=== PATIENT | female | born 1990 | race American Indian/Alaskan Native ===

== ENCOUNTER 2016-04-15 00:22 | Emergency (ER) | payer SELFPAY ==
[2016-04-15 00:48] VITALS: BP 117/71
--- NOTE | 2016-04-15 04:25 | Emergency Department Report ---
- General Chief complaint: Skin/Abscess/Foreign Body Stated complaint: BUMP ON VAGINA Time Seen by Provider: 04/15/16 04:24 Source: patient Mode of arrival: Ambulatory Limitations: No Limitations - History of Present Illness Initial comments: 25-year-old female presents to the emergency room with complaint of a bump on her vagina for the last few days. The patient noticed a bump on her left side of her vagina 5 days ago progressively getting worse. Denies any injury. Patient shaved herself and since then she noticed a little bump progressively getting worse. Denies any vaginal discharge. Fever. Complains of pain to the area. MD complaint: abscess/boil -: Gradual, days(s) (five) Tetanus Up to Date: yes Location: genitals Severity: moderate Severity scale (0 -10): 3 Quality: aching, dull Consistency: constant Improves with: none Worsens with: palpation, movement Context: none Associated symptoms: denies other symptoms Treatments Prior to Arrival: none - Related Data Previous Rx's Medication Instructions Recorded Last Taken Type Amoxicillin [Amoxicillin TAB] 875 mg PO BID #20 tablet 12/20/14 Unknown Rx Prednisone [predniSONE 5 mg (6-Day 5 mg PO .TAPER #1 tab.ds.pk 12/20/14 Unknown Rx Pack, 21 Tabs)] Promethazine /Codeine 5 ml PO Q6H PRN #60 ml 12/20/14 Unknown Rx [Phenergan/Codeine 6.25-10 mg/5Ml] Ibuprofen [Motrin] 800 mg PO Q8HR PRN #10 tablet 12/18/15 Unknown Rx Sulfamethoxazole/Trimethoprim 1 each PO BID #10 tablet 12/18/15 Unknown Rx [Bactrim DS TAB] Cephalexin [Keflex] 500 mg PO Q8HR #21 cap 04/15/16 Unknown Rx Diclofenac Sodium 75 mg PO BID #14 tablet.dr 04/15/16 Unknown Rx Sulfamethoxazole/Trimethoprim 1 each PO BID #14 tablet 04/15/16 Unknown Rx [Bactrim DS TAB] traMADol [Ultram] 50 mg PO Q6HR PRN #14 tablet 04/15/16 Unknown Rx Allergies Allergy/AdvReac Type Severity Reaction Status Date / Time No Known Allergies Allergy Verified 12/19/14 23:19 Abscess Boil HPI - HPI Chief Complaint: Skin/Abscess/Foreign Body Stated Complaint: BUMP ON VAGINA Time Seen by Provider: 04/15/16 04:24 Home Medications: Previous Rx's Medication Instructions Recorded Last Taken Type Amoxicillin [Amoxicillin TAB] 875 mg PO BID #20 tablet 12/20/14 Unknown Rx Prednisone [predniSONE 5 mg (6-Day 5 mg PO .TAPER #1 tab.ds.pk 12/20/14 Unknown Rx Pack, 21 Tabs)] Promethazine /Codeine 5 ml PO Q6H PRN #60 ml 12/20/14 Unknown Rx [Phenergan/Codeine 6.25-10 mg/5Ml] Ibuprofen [Motrin] 800 mg PO Q8HR PRN #10 tablet 12/18/15 Unknown Rx Sulfamethoxazole/Trimethoprim 1 each PO BID #10 tablet 12/18/15 Unknown Rx [Bactrim DS TAB] Cephalexin [Keflex] 500 mg PO Q8HR #21 cap 04/15/16 Unknown Rx Diclofenac Sodium 75 mg PO BID #14 tablet. 04/15/16 Unknown Rx Sulfamethoxazole/Trimethoprim 1 each PO BID #14 tablet 04/15/16 Unknown Rx [Bactrim DS TAB] traMADol [Ultram] 50 mg PO Q6HR PRN #14 tablet 04/15/16 Unknown Rx Allergies/Adverse Reactions: Allergies Allergy/AdvReac Type Severity Reaction Status Date / Time No Known Allergies Allergy Verified 12/19/14 23:19 ED Review of Systems ROS: Stated complaint: BUMP ON VAGINA Other details as noted in HPI Comment: All other systems reviewed and negative Constitutional: denies: chills, fever Eyes: denies: eye pain, eye discharge, vision change ENT: denies: ear pain, throat pain Respiratory: denies: cough, shortness of breath, wheezing Cardiovascular: denies: chest pain, palpitations Endocrine: no symptoms reported Gastrointestinal: denies: abdominal pain, nausea, diarrhea Genitourinary: denies: urgency, dysuria, discharge Musculoskeletal: denies: back pain, joint swelling, arthralgia Skin: as per HPI, rash, lesions Neurological: denies: headache, weakness, paresthesias Psychiatric: denies: anxiety, depression Hematological/Lymphatic: denies: easy bleeding, easy bruising ED Past Medical Hx - Past Medical History Previous Medical History?: Yes Hx Headaches / Migraines: Yes (MIGRAINES) - Surgical History Past Surgical History?: No - Social History Smoking Status: Current Every Day Smoker Substance Use Type: Alcohol, Marijuana - Medications Home Medications: Home Medications Medication Instructions Recorded Confirmed Last Taken Type Amoxicillin [Amoxicillin TAB] 875 mg PO BID #20 tablet 12/20/14 Unknown Rx Prednisone [predniSONE 5 mg (6-Day 5 mg PO .TAPER #1 tab.ds.pk 12/20/14 Unknown Rx Pack, 21 Tabs)] Promethazine /Codeine 5 ml PO Q6H PRN #60 ml 12/20/14 Unknown Rx [Phenergan/Codeine 6.25-10 mg/5Ml] Ibuprofen [Motrin] 800 mg PO Q8HR PRN #10 tablet 12/18/15 Unknown Rx Sulfamethoxazole/Trimethoprim 1 each PO BID #10 tablet 12/18/15 Unknown Rx [Bactrim DS TAB] Cephalexin [Keflex] 500 mg PO Q8HR #21 cap 04/15/16 Unknown Rx Diclofenac Sodium 75 mg PO BID #14 tablet. 04/15/16 Unknown Rx Sulfamethoxazole/Trimethoprim 1 each PO BID #14 tablet 04/15/16 Unknown Rx [Bactrim DS TAB] traMADol [Ultram] 50 mg PO Q6HR PRN #14 tablet 04/15/16 Unknown Rx ED Physical Exam - General Limitations: No Limitations General appearance: alert, in no apparent distress - Head Head exam: Present: atraumatic, normocephalic - Eye Eye exam: Present: normal appearance - ENT ENT exam: Present: mucous membranes moist - Neck Neck exam: Present: normal inspection - Respiratory Respiratory exam: Present: normal lung sounds bilaterally. Absent: respiratory distress - Cardiovascular Cardiovascular Exam: Present: regular rate, normal rhythm. Absent: systolic murmur, diastolic murmur, rubs, gallop - GI/Abdominal GI/Abdominal exam: Present: soft, normal bowel sounds - External exam: Present: erythema (left labia. moderate tenderness. female RN and family present), swelling - Extremities Exam Extremities exam: Present: normal inspection - Back Exam Back exam: Present: normal inspection - Neurological Exam Neurological exam: Present: alert, oriented X3 - Psychiatric Psychiatric exam: Present: normal affect, normal mood - Skin Skin exam: Present: warm, dry, intact, normal color. Absent: rash ED Course Vital Signs 04/15/16 04/15/16 00:47 01:52 Temperature 99.4 F 99.4 F Pulse Rate 100 H 100 H Respiratory 20 20 Rate Blood Pressure 117/71 Blood Pressure 117/71 [Right] O2 Sat by Pulse 100 100 Oximetry - Reevaluation(s) Reevaluation #1: Incision and drainage of Bartholin's abscess in the left labia was offered and the patient. Patient wants to hold off on the I & D, wants antibiotics and pain medicine to try. 04/15/16 05:00 Critical care attestation.: If time is entered above; I have spent that time in minutes in the direct care of this critically ill patient, excluding procedure time. ED Disposition Clinical Impression: Bartholin's gland abscess Disposition: DISCHARGED TO HOME OR SELFCARE Is pt being admited?: No Does the pt Need Aspirin: No Condition: Good Instructions: Bartholin Cyst (ED), Abscess (ED) Prescriptions: Cephalexin [Keflex] 500 mg PO Q8HR #21 cap Diclofenac Sodium 75 mg PO BID #14 tablet. Sulfamethoxazole/Trimethoprim [Bactrim DS TAB] 1 each PO BID #14 tablet traMADol [Ultram] 50 mg PO Q6HR PRN #14 tablet PRN Reason: Pain Referrals: [facility] [Provider Group] - 3-5 Days Forms: Work/School Release Form(ED)
[2016-04-15] MEDS ORDERED: NORCO 10/325 PO ONE (04:38)
[2016-04-15] MEDS ORDERED: BACTRIM DS PO ONE (04:38)
[2016-04-15] MEDS ORDERED: KEFLEX PO ONE (04:39)
== END 2016-04-15 05:30 | disposition home or self-care (01) ==
LOC: ED 00:22
DX: N75.1 Abscess of Bartholin's gland (principal); G43.909 Migraine, unspecified, not intractable, without status migrainosus; F17.200 Nicotine dependence, unspecified, uncomplicated; F12.10 Cannabis abuse, uncomplicated
CPT/HCPCS: 99282

== ENCOUNTER 2016-05-17 11:43 | Emergency (ER) | payer SELFPAY ==
[2016-05-17 13:42] LABS: Basophils % (Auto) 0.2 % (0.0-1.8); Eosinophils % (Auto) 0.1 % (0.0-4.3); Hematocrit 41.2 % (30.3-42.9); Mean Corpuscular HGB Conc 32 % (30-34); Mean Corpuscular Hemoglobin 27 pg (28-32); Mean Corpuscular Volume 84 fl (79-97); Platelet Count 256 K/mm3 (140-440); Red Cell Distribution Width 14.3 % (13.2-15.2); White Blood Count 6.1 K/mm3 (4.5-11.0)
[2016-05-17 13:43] LABS: Bilirubin,Urine NEG (Negative); Blood,Urine LG (Negative); Ketones,Urine 80 mg/dL (Negative); Leukocyte Esterase,Urine TR (Negative); Mucus,Urine 1+ /HPF; Nitrite,Urine NEG (Negative); Urobilinogen,Urine < 2.0 mg/dL (<2.0)
[2016-05-17 13:49] LABS: Anion Gap 17 mmol/L; BUN/Creatinine Ratio 18.33; Blood Urea Nitrogen 11 mg/dL (7-17); Calcium 9.2 mg/dL (8.4-10.2); Carbon Dioxide 24 mmol/L (22-30); Chloride 99.7 mmol/L (98-107); Glucose 109 mg/dL (65-100); Potassium 3.9 mmol/L (3.6-5.0); Sodium 137 mmol/L (137-145)
--- NOTE | 2016-05-17 16:07 | Ultrasound Report ---
Pelvic ultrasound: Vaginal bleeding, pain and IUD position. Endovaginal and transabdominal imaging demonstrates an anteverted uterus measuring 3.5 x 4.7 x 7.2 cm. The myometrium is homogeneous. The endometrial thickness is 4.9 mm. There is an IUD in good position with the tip approximately 15 mm from the margin of the superior fundus. The left ovary is not identified by either approach. The right ovary measures 3.4 cm and contains an 18 mm hypoechogenic mass with sharp margins and may represent a cyst. No free fluid identified. Impressions: 1. Well-positioned IUD. 2. Nonvisualized left ovary.
[2016-05-17 17:28] VITALS: BP 140/81
[2016-05-17] MEDS ORDERED: NACL 0.9% 1000 ML 1,000 ML IV ONE (19:26)
[2016-05-17] MEDS ORDERED: TORADOL IV ONE (19:26)
[2016-05-17] MEDS ORDERED: ZOFRAN IV ONE ×2 (19:26→20:42)
[2016-05-17] MEDS ORDERED: BENTYL IM ONE (19:26)
--- NOTE | 2016-05-17 19:52 | Emergency Department Report ---
ED General Adult HPI - General Chief complaint: Nausea/Vomiting/Diarrhea Stated complaint: N/V/D Time Seen by Provider: 05/17/16 19:11 Source: patient Mode of arrival: Ambulatory Limitations: No Limitations - History of Present Illness Initial comments: PT c/o having menstrual problems since she was a child. PT states that 4 years ago she had to stop her OCPs because she was dx with migraines with aura. PT states at that time she had Mirena IUD placed. PT states it helped for a few years but 1 year ago, she started getting her cycle again. PT states every month her cycle is 7 days long and she has associated N/V/D. PT states she has not followed up with [facility]. PT states she just goes to the ED when her symptoms get back. PT states her cycle started yesterday and she woke up this morning at 0100 vomiting. MD Complaint: dysmenorrhea Onset/Timin -: Gradual, days(s) Location: pelvis Severity scale (0 -10): 10 Quality: stabbing, other (cramping ) Consistency: constant Improves with: none Associated Symptoms: loss of appetite, malaise, nausea/vomiting. denies: fever/ chills - Related Data Previous Rx's Medication Instructions Recorded Last Taken Type Meloxicam [Mobic] 15 mg PO DAILY PRN #7 tablet 05/17/16 Unknown Rx Ondansetron [Zofran Odt] 4 mg PO Q8HR PRN #10 tab.rapdis 05/17/16 Unknown Rx Allergies Allergy/AdvReac Type Severity Reaction Status Date / Time No Known Allergies Allergy Verified 12/19/14 23:19 ED Review of Systems ROS: Stated complaint: N/V/D Other details as noted in HPI Comment: All other systems reviewed and negative Constitutional: malaise. denies: fever Gastrointestinal: abdominal pain, nausea, vomiting Genitourinary: denies: dysuria, discharge, abnormal menses Musculoskeletal: back pain ED Past Medical Hx - Past Medical History Previous Medical History?: Yes Hx Headaches / Migraines: Yes (MIGRAINES) Additional medical history: IUD - Surgical History Past Surgical History?: Yes Additional Surgical History: IUD - Social History Smoking Status: Current Some Day Smoker Substance Use Type: Alcohol, Marijuana, Non Opiate Pain - Medications Home Medications: Home Medications Medication Instructions Recorded Confirmed Last Taken Type Meloxicam [Mobic] 15 mg PO DAILY PRN #7 tablet 05/17/16 Unknown Rx Ondansetron [Zofran Odt] 4 mg PO Q8HR PRN #10 tab.rapdis 05/17/16 Unknown Rx ED Physical Exam - General Limitations: No Limitations General appearance: alert, in no apparent distress - Head Head exam: Present: atraumatic, normocephalic, normal inspection - Eye Eye exam: Present: normal appearance, PERRL. Absent: conjunctival injection - ENT ENT exam: Present: normal exam, mucous membranes moist - Neck Neck exam: Present: normal inspection, full ROM. Absent: tenderness - Respiratory Respiratory exam: Present: normal lung sounds bilaterally. Absent: respiratory distress, wheezes, chest wall tenderness - Cardiovascular Cardiovascular Exam: Present: regular rate, normal rhythm, normal heart sounds - GI/Abdominal GI/Abdominal exam: Present: soft, hyperactive bowel sounds (x 4 ). Absent: tenderness, normal bowel sounds - Extremities Exam Extremities exam: Present: normal inspection, full ROM - Back Exam Back exam: Present: normal inspection, full ROM. Absent: tenderness, CVA tenderness (R), CVA tenderness (L), muscle spasm, paraspinal tenderness, vertebral tenderness - Neurological Exam Neurological exam: Present: alert, oriented X3 - Psychiatric Psychiatric exam: Present: normal affect, normal mood - Skin Skin exam: Present: warm, dry, intact, normal color ED Course Vital Signs 05/17/16 05/17/16 12:45 17:20 Temperature 98.5 F 99.0 F Pulse Rate 78 86 Respiratory 20 20 Rate Blood Pressure 127/79 140/81 O2 Sat by Pulse 100 100 Oximetry - Reevaluation(s) Reevaluation #1: 05/17/16 19:55 PT aware of US and lab results. PT aware of plan of care. PT aware she will need to follow up with [facility] Reevaluation #2: 05/17/16 20:42 PT states the pain has decreased. PT states she is pain free now. PT states she is still nauseated. pt aware of plan of care. - Pulse Oximetry Interpretation Digit-Finger Initial Pulse Oximetry Readin Actions Taken: none ED Medical Decision Making - Lab Data Result diagrams: 05/17/16 13:21 05/17/16 13:21 Lab Results 05/17/16 05/17/16 05/17/16 Range/Units 13:05 13:21 13:21 WBC 6.1 (4.5-11.0) K/mm3 RBC 4.90 (3.65-5.03) M/mm3 Hgb 13.0 (10.1-14.3) gm/dl Hct 41.2 (30.3-42.9) % MCV 84 (79-97) fl MCH 27 L (28-32) pg MCHC 32 (30-34) % RDW 14.3 (13.2-15.2) % Plt Count 256 (140-440) K/mm3 Lymph % (Auto) 10.9 L (13.4-35.0) % Christian % (Auto) 9.7 H (0.0-7.3) % Eos % (Auto) 0.1 (0.0-4.3) % Baso % (Auto) 0.2 (0.0-1.8) % Lymph # 0.7 L (1.2-5.4) K/mm3 Christian # 0.6 (0.0-0.8) K/mm3 Eos # 0.0 (0.0-0.4) K/mm3 Baso # 0.0 (0.0-0.1) K/mm3 Seg Neutrophils % 79.1 H (40.0-70.0) % Seg Neutrophils # 4.8 (1.8-7.7) K/mm3 Sodium 137 (137-145) mmol/L Potassium 3.9 (3.6-5.0) mmol/L Chloride 99.7 (98-107) mmol/L Carbon Dioxide 24 (22-30) mmol/L Anion Gap 17 mmol/L BUN 11 (7-17) mg/dL Creatinine 0.6 L (0.7-1.2) mg/dL Estimated GFR > 60 ml/min BUN/Creatinine Ratio 18.33 % Glucose 109 H (65-100) mg/dL Calcium 9.2 (8.4-10.2) mg/dL Urine Color Yellow (Yellow) Urine Turbidity Clear (Clear) Urine pH 5.0 (5.0-7.0) Ur Specific [place] 1.031 H (1.003-1.030) Urine Protein 100 mg/dl (Negative) mg/dL Urine Glucose (UA) Neg (Negative) mg/dL Urine Ketones 80 (Negative) mg/dL Urine Blood Lg (Negative) Urine Nitrite Neg (Negative) Ur Reducing Substances Not Reportable Urine Bilirubin Neg (Negative) Urine Ictotest Not Reportable Urine Urobilinogen < 2.0 (<2.0) mg/dL Ur Leukocyte Esterase Tr (Negative) Urine WBC (Auto) 3.0 (0.0-6.0) /HPF Urine RBC (Auto) 154.0 (0.0-6.0) /HPF U Epithel Cells (Auto) 4.0 (0-13.0) /HPF Urine Mucus 1+ /HPF Urine HCG, Qual Negative (Negative) Urine contaminated - Radiology Data Radiology results: report reviewed pelvic US - Well positioned IUD - Differential Diagnosis , migrated iud, uti, dysmenorrhea Critical care attestation.: If time is entered above; I have spent that time in minutes in the direct care of this critically ill patient, excluding procedure time. ED Disposition Clinical Impression: Dysmenorrhea Nausea & vomiting Qualifiers: Vomiting type: unspecified Vomiting Intractability: non-intractable Qualified Code(s): R11.2 - Nausea with vomiting, unspecified Disposition: DISCHARGED TO HOME OR SELFCARE Is pt being admited?: No Does the pt Need Aspirin: No Condition: Stable Instructions: Endometriosis (ED), Dysmenorrhea (ED) Additional Instructions: Recheck BP on follow up Prescriptions: Meloxicam [Mobic] 15 mg PO DAILY PRN #7 tablet PRN Reason: Pain Ondansetron [Zofran Odt] 4 mg PO Q8HR PRN #10 tab.rapdis PRN Reason: Nausea Referrals: [facility] [Provider Group] - 3-5 Days [facility] [Outside] - 3-5 Days [facility] [Outside] - 3-5 Days [facility] [Primary Care Provider] - 3-5 Days Forms: Work/School Release Form(ED)
== END 2016-05-17 22:28 | disposition home or self-care (01) ==
LOC: ED 11:43
DX: N94.6 Dysmenorrhea, unspecified (principal); R11.2 Nausea with vomiting, unspecified; G43.909 Migraine, unspecified, not intractable, without status migrainosus; F17.200 Nicotine dependence, unspecified, uncomplicated; F12.10 Cannabis abuse, uncomplicated
CPT/HCPCS: 36415; 76830; 76856; 80048; 81001; 81025; 82962; 85025; 96361; 96372; 96374; 96375; 99284; J0500; J1885; J2405; J7030

== ENCOUNTER 2017-01-07 13:00 | Emergency (ER) | payer OTHER ==
[2017-01-07 14:23] LABS: Basophils % (Auto) 0.4 % (0.0-1.8); Eosinophils % (Auto) 1.1 % (0.0-4.3); Hematocrit 37.8 % (30.3-42.9); Hemoglobin 12.4 gm/dl (10.1-14.3); Mean Corpuscular HGB Conc 33 % (30-34); Mean Corpuscular Hemoglobin 27 pg (28-32); Mean Corpuscular Volume 84 fl (79-97); Platelet Count 257 K/mm3 (140-440); Red Blood Count 4.52 M/mm3 (3.65-5.03); Red Cell Distribution Width 13.8 % (13.2-15.2); White Blood Count 9.7 K/mm3 (4.5-11.0)
[2017-01-07 14:44] LABS: Alanine Aminotransferase 10 units/L (7-56); Albumin 3.6 g/dL (3.9-5); Albumin/Globulin Ratio 1.2 %; Alkaline Phosphatase 40 units/L (35-129); Anion Gap 16 mmol/L; BUN/Creatinine Ratio 15; Bilirubin,Total < 0.20 mg/dL (0.1-1.2); Blood Urea Nitrogen 9 mg/dL (7-17); Calcium 8.8 mg/dL (8.4-10.2); Carbon Dioxide 24 mmol/L (22-30); Chloride 102.2 mmol/L (98-107); Glucose 111 mg/dL (65-100); Lipase 40 units/L (13-60); Potassium 3.6 mmol/L (3.6-5.0); Sodium 139 mmol/L (137-145); Total Protein 6.6 g/dL (6.3-8.2)
[2017-01-07 14:49] LABS: Bacteria,Urine 1+ /HPF (Negative); Bilirubin,Urine NEG (Negative); Blood,Urine NEG (Negative); Ketones,Urine NEG (Negative); Leukocyte Esterase,Urine TR (Negative); Mucus,Urine 2+ /HPF; Nitrite,Urine NEG (Negative); Urobilinogen,Urine < 2.0 mg/dL (<2.0)
[2017-01-07 17:00] VITALS: BP 104/62
[2017-01-07] MEDS ORDERED: MORPHINE IV ONE (17:05)
[2017-01-07] MEDS ORDERED: ZOFRAN IV ONE (17:05)
--- NOTE | 2017-01-07 17:12 | Emergency Department Report ---
HPI - General Chief Complaint: Abdominal Pain Time Seen by Provider: 01/07/17 16:47 - HPI HPI: This is a 26-year-old white female presents to the emergency department with complaint of some upper abdominal pain, nausea and vomiting has been going on since last night. She has a past medical history of migraines. She has not taken anything for her symptoms. Presentation. No recent travel or sick contacts at home. She denies any dysuria, vaginal bleeding or discharge, fever , back pain, diarrhea. She was driven in by her girlfriend. ED Past Medical Hx - Past Medical History Hx Headaches / Migraines: Yes (MIGRAINES) Additional medical history: IUD - Surgical History Additional Surgical History: IUD - Social History Smoking Status: Current Every Day Smoker Substance Use Type: None - Medications Home Medications: Home Medications Medication Instructions Recorded Confirmed Last Taken Type Meloxicam [Mobic] 15 mg PO DAILY PRN #7 tablet 05/17/16 Unknown Rx HYDROcodone/APAP 5-325 [[place] 1 each PO Q6HR PRN #10 tablet 01/07/17 Unknown Rx 5/325] Ondansetron [Zofran ODT TAB] 4 mg PO Q8HR PRN #10 tab.rapdis 01/07/17 Unknown Rx ED Review of Systems ROS: Stated complaint: ABDOMINAL PAIN Other details as noted in HPI Comment: All other systems reviewed and negative Constitutional: denies: chills, fever Eyes: denies: eye pain, eye discharge, vision change ENT: denies: ear pain, throat pain Respiratory: denies: cough, shortness of breath, wheezing Cardiovascular: denies: chest pain, palpitations Gastrointestinal: abdominal pain, nausea, vomiting Genitourinary: denies: urgency, dysuria, discharge Musculoskeletal: denies: back pain, joint swelling, arthralgia Skin: denies: rash, lesions Neurological: denies: headache, weakness, paresthesias Physical Exam - Physical Exam Vital Signs: Vital Signs 01/07/17 01/07/17 01/07/17 13:06 16:51 16:53 Temperature 98.5 F 97.9 F Pulse Rate 79 98 H Respiratory 24 20 22 Rate Blood Pressure 132/78 Blood Pressure 104/62 [Right] O2 Sat by Pulse 98 98 98 Oximetry Physical Exam: GENERAL: The patient is well-developed well-nourished. HENT: Normocephalic. Atraumatic. Patient has moist mucous membranes. EYES: Extraocular motions are intact. Pupils equal reactive to light bilaterally. NECK: Supple. Trachea is midline. CHEST/LUNGS: Clear to auscultation. There is no respiratory distress noted. HEART/CARDIOVASCULAR: Regular. There is no tachycardia. There is no gallop rub or murmur. ABDOMEN: Abdomen is soft. Upper abdominal tenderness to palpation, worst in the right upper quadrant. No guarding or rebound tenderness. Patient has normal bowel sounds. There is no abdominal distention. SKIN: Skin is warm and dry. NEURO: The patient is awake, alert, and oriented. The patient is cooperative. The patient has no focal neurologic deficits. The patient has normal speech. MUSCULOSKELETAL: There is no tenderness or deformity. There is no limitation range of motion. There is no evidence of acute injury. ED Course Vital Signs 01/07/17 01/07/17 01/07/17 13:06 16:51 16:53 Temperature 98.5 F 97.9 F Pulse Rate 79 98 H Respiratory 24 20 22 Rate Blood Pressure 132/78 Blood Pressure 104/62 [Right] O2 Sat by Pulse 98 98 98 Oximetry ED Medical Decision Making - Lab Data Result diagrams: 01/07/17 14:04 01/07/17 14:04 - Radiology Data Radiology results: report reviewed PROCEDURE: US ABDOMEN LIMITED TECHNIQUE: Real-time sonography in multiple planes of the gallbladder fossa and CBD with imaging of the adjacent liver, pancreas, and right kidney was performed with image documentation. CPT 88707 HISTORY: Upper abd pain COMPARISON: No prior studies are available for comparison. FINDINGS: Liver: Normal size and echotexture with no evidence of cystic or solid mass lesion. Gallbladder: There is a 1.8 centimeter gallstone within the gallbladder lumen with posterior shadowing. No gallbladder wall thickening. Intrahepatic bile ducts: Normal . Extrahepatic bile ducts: 4 millimeter caliber common bile duct. Pancreas: Not fully visualized. Right kidney: Normal echotexture. No focal renal mass, calculus, or hydronephrosis. Other: No free fluid. IMPRESSION: Cholelithiasis. No sonographic evidence of acute cholecystitis Transcribed By: [facility] Dictated By: CLEMENTINA DONALD M.D. Electronically Authenticated By: CLEMENTINA DONALD M.D. Signed Date/Time: 01/07/17 1429 - Medical Decision Making Patient has had upper abdominal pain, nausea and vomiting since last night. Given pain medication and Zofran. Suspicion for cholelithiasis so ultrasound was done which does confirm a 2 cm gallstone but no signs of cholecystitis. Labs are unremarkable. Vital signs stable including being afebrile. She will be discharged home with pain medication, nausea medication and a referral for general surgery. We discussed staying away from foods that are greasy, fried or spicy, stay away from alcohol, and we discussed when to return to the emergency department. - Differential Diagnosis cholelithiasis, cholecystitis, pancreatitis, gastritis Critical Care Time: No Critical care attestation.: If time is entered above; I have spent that time in minutes in the direct care of this critically ill patient, excluding procedure time. ED Disposition Clinical Impression: Upper abdominal pain Cholelithiasis Qualifiers: Cholelithiasis location: gallbladder Cholecystitis presence: without cholecystitis Biliary obstruction: without biliary obstruction Qualified Code(s) : K80.20 - Calculus of gallbladder without cholecystitis without obstruction Disposition: - TO HOME OR SELFCARE Is pt being admited?: No Condition: Stable Instructions: Biliary Colic (ED), Abdominal Pain (ED) Additional Instructions: Please follow-up with your primary care physician. I have given you a referral for a local general surgeon, Dr. Barrientos, occasionally would like to follow up regarding your gallstones. Return to the emergency Department with any worsening of your symptoms, development of fever, vomiting and the inability to stay hydrated, and any acute distress. You have been prescribed a medication that is sedating and therefore should not be taken prior to driving, working, and responsible for children and in no way should be mixed with alcohol of any quantity. Prescriptions: HYDROcodone/APAP 5-325 [[place] 5/325] 1 each PO Q6HR PRN #10 tablet PRN Reason: Pain Ondansetron [Zofran ODT TAB] 4 mg PO Q8HR PRN #10 tab.rapdis PRN Reason: Nausea Referrals: PRIMARY CARE, [Primary Care Provider] - 3-5 Days ABHILASH BARRIENTOS MD [Staff Physician] - 3-5 Days Forms: Work/School Release Form(ED) Time of Disposition: 18:40
--- NOTE | 2017-01-07 18:32 | Ultrasound Report ---
FINAL REPORT PROCEDURE: US ABDOMEN LIMITED TECHNIQUE: Real-time sonography in multiple planes of the gallbladder fossa and CBD with imaging of the adjacent liver, pancreas, and right kidney was performed with image documentation. CPT 60744 HISTORY: Upper abd pain COMPARISON: No prior studies are available for comparison. FINDINGS: Liver: Normal size and echotexture with no evidence of cystic or solid mass lesion. Gallbladder: There is a 1.8 centimeter gallstone within the gallbladder lumen with posterior shadowing. No gallbladder wall thickening. Intrahepatic bile ducts: Normal . Extrahepatic bile ducts: 4 millimeter caliber common bile duct. Pancreas: Not fully visualized. Right kidney: Normal echotexture. No focal renal mass, calculus, or hydronephrosis. Other: No free fluid. IMPRESSION: Cholelithiasis. No sonographic evidence of acute cholecystitis
== END 2017-01-07 19:04 | disposition home or self-care (01) ==
LOC: ED 13:00
DX: K80.20 Calculus of gallbladder without cholecystitis without obstruction (principal); G43.909 Migraine, unspecified, not intractable, without status migrainosus; F17.200 Nicotine dependence, unspecified, uncomplicated
CPT/HCPCS: 36415; 76705; 80053; 81001; 81025; 83690; 84703; 85025; 96374; 96375; 99284; J2270; J2405

== ENCOUNTER 2017-02-23 04:17 | Emergency (ER) | payer OTHER ==
[2017-02-23 07:27] LABS: Hematocrit 38.5 % (30.3-42.9); Hemoglobin 12.6 gm/dl (10.1-14.3); Mean Corpuscular HGB Conc 33 % (30-34); Mean Corpuscular Hemoglobin 27 pg (28-32); Mean Corpuscular Volume 82 fl (79-97); Platelet Count 241 K/mm3 (140-440); Red Blood Count 4.69 M/mm3 (3.65-5.03); Red Cell Distribution Width 13.5 % (13.2-15.2)
[2017-02-23 07:29] LABS: Alanine Aminotransferase 11 units/L (7-56); BUN/Creatinine Ratio 13; Blood Urea Nitrogen 9 mg/dL (7-17); Calcium 8.9 mg/dL (8.4-10.2); Hemolysis Index 10
[2017-02-23 07:55] LABS: Bacteria,Urine 2+ /HPF (Negative); Bilirubin,Urine NEG (Negative); Blood,Urine MOD (Negative); Color,Urine Amber (Yellow); Mucus,Urine 3+ /HPF; Nitrite,Urine POS (Negative)
[2017-02-23 08:36] LABS: Total Cells Counted 100
[2017-02-23 08:37] LABS: Band Neutrophils # (Manual) 0.1 K/mm3; Basophils % (Manual) 0 % (0.0-1.8); Platelet Estimate Consistent w Auto; RBC Morphology Normal
--- NOTE | 2017-02-23 11:58 | Emergency Department Report ---
ED General Adult HPI - General Chief complaint: Abdominal Pain Stated complaint: ABD PAIN, FLU SX Time Seen by Provider: 02/23/17 11:51 Source: patient Mode of arrival: Ambulatory Limitations: No Limitations - History of Present Illness Initial comments: Patient is a 26-year-old [place] female who is presenting with several days of nausea vomiting diarrhea and cough. Patient states these symptoms have been present for approximately 5 days. Patient states she has generalized abdominal discomfort that is crampy 5 out of 10 in severity with nausea vomiting and diarrhea. Patient's last episode of nausea vomiting diarrhea yesterday. Patient's had a productive cough with yellow sputum for the past several days as well as nasal congestion. Patient denies any significant body aches and fevers chills vaginal discharge and vaginal bleeding or dysuria at this time. - Related Data Previous Rx's Medication Instructions Recorded Last Taken Type Meloxicam [Mobic] 15 mg PO DAILY PRN #7 tablet 05/17/16 Unknown Rx HYDROcodone/APAP 5-325 [[place] 1 each PO Q6HR PRN #10 tablet 01/07/17 Unknown Rx 5/325] Ondansetron [Zofran ODT TAB] 4 mg PO Q8HR PRN #10 tab.rapdis 01/07/17 Unknown Rx ALBUTEROL Inhaler [Proair] 2 puff IH QID PRN #1 inhalation 02/23/17 Unknown Rx Azithromycin [Zithromax] 250 mg PO DAILY #6 tablet 02/23/17 Unknown Rx Benzonatate [Tessalon Perle] 100 mg PO TID #12 capsule 02/23/17 Unknown Rx HYDROcodone/APAP 5-325 [[place] 1 each PO Q4HR PRN #12 tablet 02/23/17 Unknown Rx 5/325] Nitrofurantoin Monohyd/M-Cryst 100 mg PO BID #14 capsule 02/23/17 Unknown Rx [Macrobid 100 mg Capsule] predniSONE [Deltasone] 20 mg PO QDAY #5 tab 02/23/17 Unknown Rx Allergies Allergy/AdvReac Type Severity Reaction Status Date / Time No Known Allergies Allergy Verified 01/07/17 13:05 ED Review of Systems ROS: Stated complaint: ABD PAIN, FLU SX Other details as noted in HPI Comment: All other systems reviewed and negative ED Past Medical Hx - Past Medical History Previous Medical History?: Yes Hx Headaches / Migraines: Yes (MIGRAINES) Additional medical history: IUD; h/o gallstones - Surgical History Past Surgical History?: Yes Additional Surgical History: IUD - Social History Smoking Status: Current Some Day Smoker Substance Use Type: Alcohol - Medications Home Medications: Home Medications Medication Instructions Recorded Confirmed Last Taken Type Meloxicam [Mobic] 15 mg PO DAILY PRN #7 tablet 05/17/16 Unknown Rx HYDROcodone/APAP 5-325 [[place] 1 each PO Q6HR PRN #10 tablet 01/07/17 Unknown Rx 5/325] Ondansetron [Zofran ODT TAB] 4 mg PO Q8HR PRN #10 tab.rapdis 01/07/17 Unknown Rx ALBUTEROL Inhaler [Proair] 2 puff IH QID PRN #1 inhalation 02/23/17 Unknown Rx Azithromycin [Zithromax] 250 mg PO DAILY #6 tablet 02/23/17 Unknown Rx Benzonatate [Tessalon Perle] 100 mg PO TID #12 capsule 02/23/17 Unknown Rx HYDROcodone/APAP 5-325 [[place] 1 each PO Q4HR PRN #12 tablet 02/23/17 Unknown Rx 5/325] Nitrofurantoin Monohyd/M-Cryst 100 mg PO BID #14 capsule 02/23/17 Unknown Rx [Macrobid 100 mg Capsule] predniSONE [Deltasone] 20 mg PO QDAY #5 tab 02/23/17 Unknown Rx ED Physical Exam - General Limitations: No Limitations General appearance: alert, in no apparent distress - Head Head exam: Present: atraumatic, normocephalic - Eye Eye exam: Present: normal appearance - ENT ENT exam: Present: mucous membranes moist. Absent: normal orophraynx (some mild generalized erythema to the posterior pharynx there is no exudate) - Neck Neck exam: Present: normal inspection, lymphadenopathy (shoddy right sided anterior cervical lymph nodes) - Respiratory Respiratory exam: Present: normal lung sounds bilaterally. Absent: respiratory distress, wheezes, rales, rhonchi - Cardiovascular Cardiovascular Exam: Present: regular rate, normal rhythm. Absent: systolic murmur, diastolic murmur, rubs, gallop - GI/Abdominal GI/Abdominal exam: Present: soft, normal bowel sounds. Absent: distended, tenderness, guarding, rebound - Extremities Exam Extremities exam: Present: normal inspection - Back Exam Back exam: Present: normal inspection - Neurological Exam Neurological exam: Present: alert, oriented X3 - Psychiatric Psychiatric exam: Present: normal affect, normal mood - Skin Skin exam: Present: warm, dry, intact, normal color. Absent: rash ED Course Vital Signs 02/23/17 02/23/17 02/23/17 04:19 04:23 05:30 Temperature 98.3 F 98.3 F Pulse Rate 84 82 Respiratory 16 16 Rate Blood Pressure 134/79 134/79 O2 Sat by Pulse 98 96 Oximetry ED Medical Decision Making - Lab Data Result diagrams: 02/23/17 06:10 02/23/17 06:10 Lab Results 02/23/17 02/23/17 02/23/17 Range/Units 06:10 06:10 07:09 WBC 4.7 (4.5-11.0) K/mm3 RBC 4.69 (3.65-5.03) M/mm3 Hgb 12.6 (10.1-14.3) gm/dl Hct 38.5 (30.3-42.9) % MCV 82 (79-97) fl MCH 27 L (28-32) pg MCHC 33 (30-34) % RDW 13.5 (13.2-15.2) % Plt Count 241 (140-440) K/mm3 [place] % (Auto) Dispatcher Relay Add Manual Diff Complete Total Counted 100 Seg Neutrophils % Dispatcher Relay Seg Neuts % (Manual) 43.0 (40.0-70.0) % Band Neutrophils % 2.0 % Lymphocytes % (Manual) 41.0 H (13.4-35.0) % Reactive Lymphs % (Man) 0 % Monocytes % (Manual) 13.0 H (0.0-7.3) % Eosinophils % (Manual) 1.0 (0.0-4.3) % Basophils % (Manual) 0 (0.0-1.8) % Metamyelocytes % 0 % Myelocytes % 0 % Promyelocytes % 0 % Blast Cells % 0 % Nucleated RBC % Not Reportable Seg Neutrophils # Man 2.0 (1.8-7.7) K/mm3 Band Neutrophils # 0.1 K/mm3 Lymphocytes # (Manual) 1.9 (1.2-5.4) K/mm3 Abs React Lymphs (Man) 0.0 K/mm3 Monocytes # (Manual) 0.6 (0.0-0.8) K/mm3 Eosinophils # (Manual) 0.0 (0.0-0.4) K/mm3 Basophils # (Manual) 0.0 (0.0-0.1) K/mm3 Metamyelocytes # 0.0 K/mm3 Myelocytes # 0.0 K/mm3 Promyelocytes # 0.0 K/mm3 Blast Cells # 0.0 K/mm3 WBC Morphology Not Reportable Hypersegmented Neuts Not Reportable Hyposegmented Neuts Not Reportable Hypogranular Neuts Not Reportable Smudge Cells Not Reportable Toxic Granulation Not Reportable Toxic Vacuolation Not Reportable Dohle Bodies Not Reportable Pelger-Huet Anomaly Not Reportable Taylor Rods Not Reportable Platelet Estimate Consistent w auto Clumped Platelets Not Reportable Plt Clumps, EDTA Not Reportable Large Platelets Not Reportable Giant Platelets Not Reportable Platelet Satelliting Not Reportable Plt Morphology Comment Not Reportable RBC Morphology Normal Dimorphic RBCs Not Reportable Polychromasia Not Reportable Hypochromasia Not Reportable Poikilocytosis Not Reportable Anisocytosis Not Reportable Microcytosis Not Reportable Macrocytosis Not Reportable Spherocytes Not Reportable Pappenheimer Bodies Not Reportable Sickle Cells Not Reportable Target Cells Not Reportable Tear Drop Cells Not Reportable Ovalocytes Not Reportable Helmet Cells Not Reportable [place] Bodies Not Reportable [place] Rings Not Reportable Solo Cells Not Reportable Bite Cells Not Reportable Crenated Cell Not Reportable Elliptocytes Not Reportable Acanthocytes (Spur) Not Reportable Rouleaux Not Reportable Hemoglobin C Crystals Not Reportable Schistocytes Not Reportable Malaria parasites Not Reportable [place] Bodies Not Reportable Hem Pathologist Commnt No Sodium 141 (137-145) mmol/L Potassium 4.0 (3.6-5.0) mmol/L Chloride 102.3 (98-107) mmol/L Carbon Dioxide 25 (22-30) mmol/L Anion Gap 18 mmol/L BUN 9 (7-17) mg/dL Creatinine 0.7 (0.7-1.2) mg/dL Estimated GFR > 60 ml/min BUN/Creatinine Ratio 13 % Glucose 92 (65-100) mg/dL Calcium 8.9 (8.4-10.2) mg/dL Total Bilirubin 0.20 (0.1-1.2) mg/dL AST 15 (5-40) units/L ALT 11 (7-56) units/L Alkaline Phosphatase 44 (35-129) units/L Total Protein 6.8 (6.3-8.2) g/dL Albumin 4.0 (3.9-5) g/dL Albumin/Globulin Ratio 1.4 % Urine Color [place] (Yellow) Urine Turbidity Clear (Clear) Urine pH 6.0 (5.0-7.0) Ur Specific [place] 1.035 H (1.003-1.030) Urine Protein 100 mg/dl (Negative) mg/dL Urine Glucose (UA) Neg (Negative) mg/dL Urine Ketones Neg (Negative) mg/dL Urine Blood Mod (Negative) Urine Nitrite Pos (Negative) Urine Bilirubin Neg (Negative) Urine Urobilinogen 4.0 (<2.0) mg/dL Ur Leukocyte Esterase Mod (Negative) Urine WBC (Auto) 60.0 H (0.0-6.0) /HPF Urine RBC (Auto) 14.0 (0.0-6.0) /HPF U Epithel Cells (Auto) 18.0 H (0-13.0) /HPF Urine Bacteria (Auto) 2+ (Negative) /HPF Urine Mucus 3+ /HPF - Medical Decision Making Patient is a 26-year-old Female who is presenting with cough cold congestion and nausea vomiting. No vomiting or improving. Patient still has a cough be given meds for symptomatic relief. Patient also on her labs does have moderate leuk esterase and nitrites consistent with a urinary tract infection Critical care attestation.: If time is entered above; I have spent that time in minutes in the direct care of this critically ill patient, excluding procedure time. ED Disposition Clinical Impression: Upper respiratory infection Qualifiers: URI type: unspecified URI Qualified Code(s): J06.9 - Acute upper respiratory infection, unspecified Acute cystitis Qualifiers: Hematuria presence: without hematuria Qualified Code(s): N30.00 - Acute cystitis without hematuria Disposition: TO HOME OR SELFCARE Is pt being admited?: No Does the pt Need Aspirin: No Condition: Stable Instructions: Upper Respiratory Infection (ED), Urinary Tract Infection in Women (ED) Prescriptions: ALBUTEROL Inhaler [Proair] 2 puff IH QID PRN #1 inhalation PRN Reason: Shortness Of Breath Azithromycin [Zithromax] 250 mg PO DAILY #6 tablet Benzonatate [Tessalon Perle] 100 mg PO TID #12 capsule HYDROcodone/APAP 5-325 [[place] 5/325] 1 each PO Q4HR PRN #12 tablet PRN Reason: Pain Nitrofurantoin Monohyd/M-Cryst [Macrobid 100 mg Capsule] 100 mg PO BID #14 capsule predniSONE [Deltasone] 20 mg PO QDAY #5 tab Referrals: MICHELLE WATSON MD [Staff Physician] - 3-5 Days
[2017-02-23 12:23] VITALS: BP 120/79
== END 2017-02-23 12:22 | disposition home or self-care (01) ==
LOC: ED 04:17
DX: J06.9 Acute upper respiratory infection, unspecified (principal); N30.00 Acute cystitis without hematuria; G43.909 Migraine, unspecified, not intractable, without status migrainosus; F17.200 Nicotine dependence, unspecified, uncomplicated
CPT/HCPCS: 36415; 80053; 81001; 85007; 85025

== ENCOUNTER 2018-10-17 19:08 | Emergency (ER) | payer SELFPAY ==
--- NOTE | 2018-10-17 19:27 | Emergency Department Report ---
Blank Doc - Documentation Documentation: 27-year-old female that presents with sore throat and headache. Exam: no facial swelling. no tongue swelling. no angioedema. No trisumus. This initial assessment/diagnostic orders/clinical plan/treatment(s) is/are subject to change based on patient's health status, clinical progression and re- assessment by fellow clinical providers in the ED. Further treatment and workup at subsequent clinical providers discretion. Patient/guardians urged not to elope from the ED as their condition may be serious if not clinically assessed and managed. Initial orders include: 1- Patient sent to [facility] for further evaluation and treatment 2- labs 3- strep swab
[2018-10-17 20:24] LABS: Basophils % (Auto) 0.6 % (0.0-1.8); Eosinophils # (Auto) 0.2 K/mm3 (0.0-0.4); Hematocrit 38.1 % (30.3-42.9); Hemoglobin 12.6 gm/dl (10.1-14.3); Lymphocytes # (Auto) 3.1 K/mm3 (1.2-5.4); Lymphocytes % (Auto) 38.6 % (13.4-35.0); Mean Corpuscular HGB Conc 33 % (30-34); Mean Corpuscular Volume 84 fl (79-97); Monocytes # (Auto) 0.8 K/mm3 (0.0-0.8); Monocytes % (Auto) 9.7 % (0.0-7.3); Platelet Count 257 K/mm3 (140-440); Red Blood Count 4.52 M/mm3 (3.65-5.03); Red Cell Distribution Width 13.9 % (13.2-15.2)
[2018-10-17 20:36] LABS: BUN/Creatinine Ratio 14; Blood Urea Nitrogen 10 mg/dL (7-17); Calcium 9.1 mg/dL (8.4-10.2); Hemolysis Index 6
--- NOTE | 2018-10-17 20:49 | Emergency Department Report ---
Minor Respiratory - HPI Chief Complaint: Sore Throat Stated Complaint: SWOLLEN TONGUE/FACE/HEADACHE Time Seen by Provider: 10/17/18 19:24 Duration: 1 Day Pain Location: Throat, Other Severity: mild Minor Respiratory: Yes Sore Throat, Yes Able to Tolerate Fluids, Yes Ear Pain, No Rhinorrhea, No Cough, No Sick Contacts, No Hemoptysis, No Chest Pain, No Shortness of Breath, No Fever Other History: 27 yo AA female comes to ER from work. She went to work and co right jaw pain which radiates to ear and neck. She believes it is a tooth. VSS. no fever. taking po. ED Review of Systems ROS: Stated complaint: SWOLLEN TONGUE/FACE/HEADACHE Other details as noted in HPI Comment: All other systems reviewed and negative ED Past Medical Hx - Past Medical History Previous Medical History?: Yes Hx Headaches / Migraines: Yes (MIGRAINES) Additional medical history: IUD; h/o gallstones - Surgical History Past Surgical History?: Yes Additional Surgical History: IUD - Social History Smoking Status: Current Every Day Smoker Substance Use Type: Alcohol, Marijuana - Medications Home Medications: Home Medications Medication Instructions Recorded Confirmed Last Taken Type ALBUTEROL Inhaler (OR & NICU) 2 puff IH QID PRN #1 inhalation 02/23/17 Unknown Rx [Proair] Amoxicillin [Trimox CAP] 500 mg PO BID #20 capsule 10/17/18 Unknown Rx Ibuprofen [Motrin] 800 mg PO Q8HR PRN #20 tablet 10/17/18 Unknown Rx predniSONE [Deltasone] 20 mg PO DAILY #5 tablet 10/17/18 Unknown Rx Minor Respiratory Exam - Exam General: Vital signs noted. No distress. Alert and acting appropriately. HEENT: Yes Moist Mucous Membranes, No Pharyngeal Erythema, No Pharyngeal Exudates, No Rhinorrhea, No Conjuctival Injection, No Frontal Tenderness, No Maxillary Tenderness Ear: Neither TM Bulge, Neither TM Erythema, Neither EAC Pain, Neither EAC Discharge Neck: Yes Adenopathy, No Supple Lungs: Yes Good Air Exchange, No Wheezes, No [place] Heart: Yes Regular, No Murmur Abdomen: Yes Normal Bowel Sounds, No Tenderness, No Peritoneal Signs Skin: No Rash Neurologic: Alert and oriented, no deficits. Musculoskeletal: Unremarkable. ED Course Vital Signs 10/17/18 19:24 Temperature 98.8 F Pulse Rate 82 Blood Pressure 128/69 ED Medical Decision Making - Lab Data Result diagrams: 10/17/18 20:03 10/17/18 20:03 - Medical Decision Making pain consistent with caries of R lower molar. abc intact controlling secretions taking po no fever no trismus no abscess no lugwigs medicated for pain and with amox educated on dc plan of care and dmd follow up Lab Results 10/17/18 10/17/18 10/17/18 Range/Units 19:25 20:03 20:03 WBC 8.1 (4.5-11.0) K/mm3 RBC 4.52 (3.65-5.03) M/mm3 Hgb 12.6 (10.1-14.3) gm/dl Hct 38.1 (30.3-42.9) % MCV 84 (79-97) fl MCH 28 (28-32) pg MCHC 33 (30-34) % RDW 13.9 (13.2-15.2) % Plt Count 257 (140-440) K/mm3 Lymph % (Auto) 38.6 H (13.4-35.0) % [place] % (Auto) 9.7 H (0.0-7.3) % Eos % (Auto) 2.0 (0.0-4.3) % Baso % (Auto) 0.6 (0.0-1.8) % Lymph # 3.1 (1.2-5.4) K/mm3 [place] # 0.8 (0.0-0.8) K/mm3 Eos # 0.2 (0.0-0.4) K/mm3 Baso # 0.0 (0.0-0.1) K/mm3 Seg Neutrophils % 49.1 (40.0-70.0) % Seg Neutrophils # 4.0 (1.8-7.7) K/mm3 Sodium 137 (137-145) mmol/L Potassium 4.1 (3.6-5.0) mmol/L Chloride 99.7 (98-107) mmol/L Carbon Dioxide 25 (22-30) mmol/L Anion Gap 16 mmol/L BUN 10 (7-17) mg/dL Creatinine 0.7 (0.7-1.2) mg/dL Estimated GFR > 60 ml/min BUN/Creatinine Ratio 14 % Glucose 97 (65-100) mg/dL Calcium 9.1 (8.4-10.2) mg/dL Group A Strep Rapid Negative (Negative) Vital Signs 10/17/18 19:24 Temperature 98.8 F Pulse Rate 82 Blood Pressure 128/69 - Differential Diagnosis dental pain/ pharyngitis / OM Critical care attestation.: If time is entered above; I have spent that time in minutes in the direct care of this critically ill patient, excluding procedure time. ED Disposition Clinical Impression: Lymphadenopathy, Pain, dental Disposition: TO HOME OR SELFCARE Is pt being admited?: No Does the pt Need Aspirin: No Condition: Stable Additional Instructions: LABS ALL NORMAL STREP NEG MEDS ORDERED TODAY FOLLOW UP WITH DENTIST OR PCP EARLY NEXT WEEK Referrals: GIL ROBERTS MD [Primary Care Provider] - 3-5 Days [facility] [Outside] - 3-5 Days [facility] [Outside] - 3-5 Days Time of Disposition: 21:55
[2018-10-17] MEDS ORDERED: TRIMOX PO ONE (21:50)
[2018-10-17] MEDS ORDERED: DELTASONE PO ONE (21:50)
[2018-10-17] MEDS ORDERED: IBUPROFEN PO ONE (21:52)
[2018-10-17 22:17] VITALS: BP 126/72
== END 2018-10-17 22:16 | disposition home or self-care (01) ==
LOC: ED 19:08
DX: R59.1 Generalized enlarged lymph nodes (principal); G43.909 Migraine, unspecified, not intractable, without status migrainosus; F17.200 Nicotine dependence, unspecified, uncomplicated; F12.90 Cannabis use, unspecified, uncomplicated; Z98.890 Other specified postprocedural states
CPT/HCPCS: 36415; 80048; 85025; 87116; 87430; J7512; 99283

== ENCOUNTER 2019-01-26 11:38 | Emergency (ER) | payer OTHER ==
[2019-01-26] MEDS ORDERED: ONDANSETRON 4 MG ODT TAB PO ONE (12:37)
[2019-01-26] MEDS ORDERED: KETOROLAC 60 MG/2 ML INJ IM ONE (12:39)
--- NOTE | 2019-01-26 12:40 | Emergency Department Report ---
- General Chief Complaint: Upper Respiratory Infection Stated Complaint: THROAT PAIN,BODY PAIN,COUGH AND HEADACHE Time Seen by Provider: 01/26/19 12:32 Source: patient Mode of arrival: Ambulatory Limitations: No Limitations - History of Present Illness Initial Comments: 28-year-old female smoker presents to the hospital complaining of cough and cold symptoms for past 2 days. She has cough productive of yellow sputum, mild intermittent wheezing worse in a.m., sore throat, body aches, chills, headache and nausea with intermittent vomiting. No complaints of diarrhea. Patient did not receive a flu shot this season. Several coworkers are also sick with bronchitis and viral syndrome. She denies any recent international travel. PMD: None. - Related Data Previous Rx's Medication Instructions Recorded Last Taken Type Amoxicillin [Trimox CAP] 500 mg PO BID #20 capsule 10/17/18 Unknown Rx predniSONE [Deltasone] 20 mg PO DAILY #5 tablet 10/17/18 Unknown Rx ALBUTEROL Inhaler (OR & NICU) 2 puff IH QID PRN #1 inhalation 01/26/19 Unknown Rx [ProAir HFA Inhaler] Benzonatate [Tessalon Perles] 100 mg PO Q8HR PRN #20 capsule 01/26/19 Unknown Rx Ibuprofen [Motrin 800 MG tab] 800 mg PO Q8HR PRN #20 tablet 01/26/19 Unknown Rx Ondansetron [Zofran Odt] 4 mg PO Q8HR PRN #20 tab.rapdis 01/26/19 Unknown Rx Allergies Allergy/AdvReac Type Severity Reaction Status Date / Time No Known Allergies Allergy Verified 01/07/17 13:05 ED Review of Systems ROS: Stated complaint: THROAT PAIN,BODY PAIN,COUGH AND HEADACHE Other details as noted in HPI Comment: All other systems reviewed and negative ED Past Medical Hx - Past Medical History Previous Medical History?: Yes Hx Headaches / Migraines: Yes (MIGRAINES) Additional medical history: IUD; h/o gallstones - Surgical History Past Surgical History?: Yes Additional Surgical History: IUD - Social History Smoking Status: Current Every Day Smoker Substance Use Type: None - Medications Home Medications: Home Medications Medication Instructions Recorded Confirmed Last Taken Type Amoxicillin [Trimox CAP] 500 mg PO BID #20 capsule 10/17/18 Unknown Rx predniSONE [Deltasone] 20 mg PO DAILY #5 tablet 10/17/18 Unknown Rx ALBUTEROL Inhaler (OR & NICU) 2 puff IH QID PRN #1 inhalation 01/26/19 Unknown Rx [ProAir HFA Inhaler] Benzonatate [Tessalon Perles] 100 mg PO Q8HR PRN #20 capsule 01/26/19 Unknown Rx Ibuprofen [Motrin 800 MG tab] 800 mg PO Q8HR PRN #20 tablet 01/26/19 Unknown Rx Ondansetron [Zofran Odt] 4 mg PO Q8HR PRN #20 tab.rapdis 01/26/19 Unknown Rx ED Physical Exam - General Limitations: No Limitations - Other Other exam information: General: No acute distress Head: Atraumatic Eyes: normal appearance ENT: Moist mucous membranes, no pharyngeal exudates or edema, mild tender lymphadenopathy Neck: Normal appearance, no midline tenderness Chest: Clear to auscultation bilaterally CV: Regular rate and rhythm Abdomen: Soft, normal bowel sounds, nontender, nondistended, no rebound or guarding Back: Normal inspection Extremity: Normal inspection infection, full range of motion Neuro: Alert O x 3, no facial asymmetry, speech clear, no gross motor sensory deficit Psych: Appropriate behavior Skin: No rash ED Course Vital Signs 01/26/19 01/26/19 12:02 13:59 Temperature 98.5 F 98.8 F Pulse Rate 94 H 85 Respiratory 18 Rate Blood Pressure 102/75 Blood Pressure 104/58 [Left] O2 Sat by Pulse 95 98 Oximetry ED Medical Decision Making - Radiology Data Radiology results: report reviewed cxr naf - Medical Decision Making strep screen neg with low clinical suspicion based on exam resp and gi sx with sick contacts, neg flu, and cxr neg for infiltrate suspect viral syndrome symptomatic tx will be provided f/u advised pt felt warm and with sweating prior to d/c. repeat temp normal without fever - Differential Diagnosis viral syndrome, flu, pneumonia, bronchitis Critical Care Time: No Critical care attestation.: If time is entered above; I have spent that time in minutes in the direct care of this critically ill patient, excluding procedure time. ED Disposition Clinical Impression: Viral syndrome Disposition: [id number] TO HOME OR SELFCARE Is pt being admited?: No Does the pt Need Aspirin: No Condition: Stable Instructions: Viral Syndrome (ED) Additional Instructions: Take the medication as prescribed. Follow-up with your doctor or doctor/clinic provided. Return if symptoms worsen as indicated by your discharge instructions. Prescriptions: Ibuprofen [Motrin 800 MG tab] 800 mg PO Q8HR PRN #20 tablet PRN Reason: Pain , Severe (7-10) ALBUTEROL Inhaler (OR & NICU) [ProAir HFA Inhaler] 2 puff IH QID PRN #1 inhalation PRN Reason: Shortness Of Breath Benzonatate [Tessalon Perles] 100 mg PO Q8HR PRN #20 capsule PRN Reason: Cough Ondansetron [Zofran Odt] 4 mg PO Q8HR PRN #20 tab.rapdis PRN Reason: Nausea And Vomiting Referrals: PRIMARY CAREMD [Primary Care Provider] - 3-5 Days KOKO RAPHAEL MD [Staff Physician] - 3-5 Days LASHONDA HOFFMANN MD [Staff Physician] - 3-5 Days Forms: Work/School Release Form(ED) Time of Disposition: 13:54
--- NOTE | 2019-01-26 12:57 | XRay Report ---
CHEST 2 VIEWS INDICATION / CLINICAL INFORMATION: cough, chills. COMPARISON: None available. FINDINGS: SUPPORT DEVICES: None. HEART / MEDIASTINUM: No significant abnormality. LUNGS / PLEURA: No significant pulmonary or pleural abnormality. No pneumothorax. ADDITIONAL FINDINGS: No significant additional findings. IMPRESSION: 1. No acute findings. Signer Name: Trav Laureano MD Signed: 01/26/2019 12:52 PM Workstation Name: [id number]
[2019-01-26 14:00] VITALS: BP 104/58
== END 2019-01-26 14:26 | disposition home or self-care (01) ==
LOC: ED 11:38
DX: B34.9 Viral infection, unspecified (principal); G43.909 Migraine, unspecified, not intractable, without status migrainosus; F17.200 Nicotine dependence, unspecified, uncomplicated; Z79.899 Other long term (current) drug therapy
CPT/HCPCS: 71046; 87116; 87400; 87430; 96372; 99284; J1885; Q0162

== ENCOUNTER 2021-06-06 19:22 | Emergency (ER) | payer OTHER ==
[2021-06-06 23:50] LABS: Basophils # (Auto) 0.1 K/mm3 (0.0-0.1); Eosinophils % (Auto) 0.3 % (0.0-4.3); Hematocrit 38.3 % (30.3-42.9); Hemoglobin 12.2 gm/dl (10.1-14.3); Lymphocytes # (Auto) 2.4 K/mm3 (1.2-5.4); Lymphocytes % (Auto) 29.5 % (13.4-35.0); Mean Corpuscular HGB Conc 32 % (30-34); Mean Corpuscular Volume 84 fl (79-97); Monocytes # (Auto) 0.6 K/mm3 (0.0-0.8); Monocytes % (Auto) 7.4 % (0.0-7.3); Platelet Count 289 K/mm3 (140-440); Red Blood Count 4.55 M/mm3 (3.65-5.03)
[2021-06-07 00:12] LABS: BUN/Creatinine Ratio 11; Blood Urea Nitrogen 8 mg/dL (7-17); Hemolysis Index 26
[2021-06-07] MEDS ORDERED: fentaNYL 100 MCG/2 ML INJ IV ONE (02:40)
[2021-06-07] MEDS ORDERED: ONDANSETRON 4 MG/2 ML INJ IV ONE (02:40)
[2021-06-07] MEDS ORDERED: SODIUM CHLORIDE 0.9% 1000 ML 1,000 ML IV ONE (02:40)
[2021-06-07] MEDS ORDERED: DICYCLOMINE 20 MG/2 ML INJ IM ONE (02:41)
[2021-06-07] MEDS ORDERED: FAMOTIDINE 20 MG/2 ML INJ IV ONE (02:41)
--- NOTE | 2021-06-07 02:46 | Emergency Department Report ---
HPI - HPI HPI: Room 4 The patient is a 30-year-old female present with a chief complaint of abdominal pain and intractable nausea vomiting. Patient states she has known gallbladder disease and this morning at 11: 00 she developed pain in her right upper quadrant nausea and vomiting. The patient states she has not been unable to keep anything down including water. Patient states her vomitus has become darker and darker to where it is now brown. Patient states her last bowel movement occurred earlier today and was green in color. Patient denies bright red blood per rectum or melena. Patient denies history of fever. Patient currently gives her pain score 7.5/10 <LINDA MELGAR - Last Filed: 06/07/21 05:21> <LENA PADILLA - Last Filed: 06/07/21 10:26> - General Chief Complaint: Abdominal Pain Time Seen by Provider: 06/07/21 02:32 ED Past Medical Hx - Past Medical History Hx GERD: Yes Hx Headaches / Migraines: Yes (MIGRAINES) Additional medical history: IUD; h/o gallstones, gastritis - Surgical History Past Surgical History?: No Additional Surgical History: IUD - Family History Family history: no significant - Social History Smoking Status: Current Every Day Smoker (1/4 pack/day) Substance Use Type: None (Denies illicit drug use), Alcohol (Occasional) <LINDA MELGAR - Last Filed: 06/07/21 05:21> <LENA PADILLA - Last Filed: 06/07/21 10:26> - Medications Home Medications: Home Medications Medication Instructions Recorded Confirmed Last Taken Type Amoxicillin [Trimox CAP] 500 mg PO BID #20 capsule 10/17/18 Unknown Rx predniSONE [Deltasone] 20 mg PO DAILY #5 tablet 10/17/18 Unknown Rx Albuterol Mdi (or & Nicu Only) 2 puff IH QID PRN #1 inhalation 01/26/19 Unknown Rx [ProAir HFA Inhaler] Benzonatate [Tessalon Perles] 100 mg PO Q8HR PRN #20 capsule 01/26/19 Unknown Rx Ibuprofen [Motrin 800 MG tab] 800 mg PO Q8HR PRN #20 tablet 01/26/19 Unknown Rx Ondansetron [Zofran Odt] 4 mg PO Q8HR PRN #20 tab.rapdis 01/26/19 Unknown Rx Dicyclomine [Bentyl] 20 mg PO QID #20 tablet 06/07/21 Unknown Rx Famotidine [Pepcid] 20 mg PO BID #20 tablet 06/07/21 Unknown Rx HYDROcodone/APAP 5-325 [[place] 1 - 2 each PO Q6HR PRN #14 tablet 06/07/21 Unknown Rx 5/325] Ondansetron [Zofran ODT TAB] 8 mg PO Q8HR #20 tab.rapdis 06/07/21 Unknown Rx ED Review of Systems ROS: Stated complaint: VOMITING BLOOD Other details as noted in HPI Constitutional: denies: fever Eyes: denies: eye pain ENT: denies: throat pain Respiratory: no symptoms reported Cardiovascular: denies: chest pain Endocrine: no symptoms reported Gastrointestinal: abdominal pain, nausea, vomiting. denies: melena Genitourinary: denies: dysuria Musculoskeletal: denies: back pain Neurological: denies: headache <LINDA MELGAR K - Last Filed: 06/07/21 05:21> ROS: Stated complaint: VOMITING BLOOD Other details as noted in HPI <LENA PADILLA C - Last Filed: 06/07/21 10:26> Physical Exam - Physical Exam Vital Signs: Vital Signs 06/06/21 22:14 Temperature 98.4 F Pulse Rate 77 Respiratory 18 Rate Blood Pressure 140/86 [Right] O2 Sat by Pulse 97 Oximetry Physical Exam: GENERAL: The patient is well-developed well-nourished female lying on stretcher not appearing to be in acute. [] HEENT: Normocephalic. Atraumatic. Extraocular motions are intact. Patient has moist mucous membranes. NECK: Supple. Trachea midline CHEST/LUNGS: Clear to auscultation. There is no respiratory distress noted. HEART/CARDIOVASCULAR: Regular. There is no tachycardia. There is no gallop rub or murmur. ABDOMEN: Abdomen is soft, with tenderness to palpation in the right upper quadrant, epigastric and left upper quadrant. There is no rebound or guarding. Patient has normal bowel sounds. There is no abdominal distention. SKIN: There is no rash. There is no edema. There is no diaphoresis. NEURO: The patient is awake, alert, and oriented. The patient is cooperative. The patient has no focal neurologic deficits. The patient has normal speech. GCS 15 MUSCULOSKELETAL: There is no evidence of acute injury. <LINDA MELGAR K - Last Filed: 06/07/21 05:21> - Physical Exam Vital Signs: Vital Signs 06/06/21 06/07/21 06/07/21 22:14 03:16 09:17 Temperature 98.4 F 97.2 F L Pulse Rate 77 76 Respiratory 18 16 20 Rate Blood Pressure Blood Pressure 140/86 122/57 [Right] O2 Sat by Pulse 97 96 Oximetry 06/07/21 06/07/21 06/07/21 09:26 09:27 09:31 Temperature Pulse Rate 71 67 Respiratory 12 18 10 L Rate Blood Pressure 114/60 Blood Pressure [Right] O2 Sat by Pulse 96 98 96 Oximetry 06/07/21 06/07/21 06/07/21 09:45 10:01 10:15 Temperature Pulse Rate 71 77 64 Respiratory 14 17 17 Rate Blood Pressure 104/68 96/44 114/61 Blood Pressure [Right] O2 Sat by Pulse 98 96 94 Oximetry <LENA PADILLA C - Last Filed: 06/07/21 10:26> ED Course Vital Signs 06/06/21 22:14 Temperature 98.4 F Pulse Rate 77 Respiratory 18 Rate Blood Pressure 140/86 [Right] O2 Sat by Pulse 97 Oximetry <LINDA MELGAR K - Last Filed: 06/07/21 05:21> Vital Signs 06/06/21 06/07/21 06/07/21 22:14 03:16 09:17 Temperature 98.4 F 97.2 F L Pulse Rate 77 76 Respiratory 18 16 20 Rate Blood Pressure Blood Pressure 140/86 122/57 [Right] O2 Sat by Pulse 97 96 Oximetry 06/07/21 06/07/21 06/07/21 09:26 09:27 09:31 Temperature Pulse Rate 71 67 Respiratory 12 18 10 L Rate Blood Pressure 114/60 Blood Pressure [Right] O2 Sat by Pulse 96 98 96 Oximetry 06/07/21 06/07/21 06/07/21 09:45 10:01 10:15 Temperature Pulse Rate 71 77 64 Respiratory 14 17 17 Rate Blood Pressure 104/68 96/44 114/61 Blood Pressure [Right] O2 Sat by Pulse 98 96 94 Oximetry - Reevaluation(s) Reevaluation #1: 06/07/21 10:23 Patient tolerating water. Pain further improved after Dilaudid 0.5 mg <LENA PADILLA - Last Filed: 06/07/21 10:26> ED Medical Decision Making - Lab Data Result diagrams: 06/06/21 23:08 06/06/21 23:08 - Differential Diagnosis Gastritis, symptomatic cholelithiasis, cholecystitis, pancreatitis, GI blee <LINDA MELGAR - Last Filed: 06/07/21 05:21> - Lab Data Result diagrams: 06/06/21 23:08 06/06/21 23:08 Lab Results 06/06/21 06/06/21 06/06/21 Range/Units 23:08 23:08 23:08 WBC 8.0 (4.5-11.0) K/mm3 RBC 4.55 (3.65-5.03) M/mm3 Hgb 12.2 (10.1-14.3) gm/dl Hct 38.3 (30.3-42.9) % MCV 84 (79-97) fl MCH 27 L (28-32) pg MCHC 32 (30-34) % RDW 14.0 (13.2-15.2) % Plt Count 289 (140-440) K/mm3 Lymph % (Auto) 29.5 (13.4-35.0) % [place] % (Auto) 7.4 H (0.0-7.3) % Eos % (Auto) 0.3 (0.0-4.3) % Baso % (Auto) 1.0 (0.0-1.8) % Lymph # (Auto) 2.4 (1.2-5.4) K/mm3 [place] # (Auto) 0.6 (0.0-0.8) K/mm3 Eos # (Auto) 0.0 (0.0-0.4) K/mm3 Baso # (Auto) 0.1 (0.0-0.1) K/mm3 Seg Neutrophils % 61.8 (40.0-70.0) % Seg Neutrophils # 4.9 (1.8-7.7) K/mm3 Sodium 139 (137-145) mmol/L Potassium 4.4 (3.6-5.0) mmol/L Chloride 100.0 (98-107) mmol/L Carbon Dioxide 24 (22-30) mmol/L Anion Gap 19 mmol/L BUN 8 (7-17) mg/dL Creatinine 0.7 (0.6-1.2) mg/dL Estimated GFR > 60 ml/min BUN/Creatinine Ratio 11 % Glucose 101 H (65-100) mg/dL Calcium 9.0 (8.4-10.2) mg/dL Total Bilirubin 0.30 (0.1-1.2) mg/dL Direct Bilirubin < 0.2 (0-0.2) mg/dL Indirect Bilirubin 0.1 mg/dL AST 17 (5-40) units/L ALT 14 (7-56) units/L Alkaline Phosphatase 45 (35-129) units/L Total Protein 7.2 (6.3-8.2) g/dL Albumin 4.5 (3.9-5) g/dL Albumin/Globulin Ratio 1.7 % Lipase 18 (13-60) units/L HCG, Qual (Negative) Urine Color (Yellow) Urine Turbidity (Clear) Urine pH (5.0-7.0) Ur Specific [place] (1.003-1.030) Urine Protein (Negative) mg/dL Urine Glucose (UA) (Negative) mg/dL Urine Ketones (Negative) mg/dL Urine Blood (Negative) Urine Nitrite (Negative) Urine Bilirubin (Negative) Urine Urobilinogen (<2.0) mg/dL Ur Leukocyte Esterase (Negative) Urine WBC (Auto) (0.0-6.0) /HPF Urine RBC (Auto) (0.0-6.0) /HPF U Epithel Cells (Auto) (0-13.0) /HPF Urine Mucus /HPF 06/06/21 06/07/21 Range/Units 23:08 05:36 WBC (4.5-11.0) K/mm3 RBC (3.65-5.03) M/mm3 Hgb (10.1-14.3) gm/dl Hct (30.3-42.9) % MCV (79-97) fl MCH (28-32) pg MCHC (30-34) % RDW (13.2-15.2) % Plt Count (140-440) K/mm3 Lymph % (Auto) (13.4-35.0) % [place] % (Auto) (0.0-7.3) % Eos % (Auto) (0.0-4.3) % Baso % (Auto) (0.0-1.8) % Lymph # (Auto) (1.2-5.4) K/mm3 [place] # (Auto) (0.0-0.8) K/mm3 Eos # (Auto) (0.0-0.4) K/mm3 Baso # (Auto) (0.0-0.1) K/mm3 Seg Neutrophils % (40.0-70.0) % Seg Neutrophils # (1.8-7.7) K/mm3 Sodium (137-145) mmol/L Potassium (3.6-5.0) mmol/L Chloride (98-107) mmol/L Carbon Dioxide (22-30) mmol/L Anion Gap mmol/L BUN (7-17) mg/dL Creatinine (0.6-1.2) mg/dL Estimated GFR ml/min BUN/Creatinine Ratio % Glucose (65-100) mg/dL Calcium (8.4-10.2) mg/dL Total Bilirubin (0.1-1.2) mg/dL Direct Bilirubin (0-0.2) mg/dL Indirect Bilirubin mg/dL AST (5-40) units/L ALT (7-56) units/L Alkaline Phosphatase (35-129) units/L Total Protein (6.3-8.2) g/dL Albumin (3.9-5) g/dL Albumin/Globulin Ratio % Lipase (13-60) units/L HCG, Qual Negative (Negative) Urine Color Yellow (Yellow) Urine Turbidity Clear (Clear) Urine pH 7.0 (5.0-7.0) Ur Specific [place] 1.026 (1.003-1.030) Urine Protein 30 mg/dl (Negative) mg/dL Urine Glucose (UA) Neg (Negative) mg/dL Urine Ketones Tr (Negative) mg/dL Urine Blood Neg (Negative) Urine Nitrite Neg (Negative) Urine Bilirubin Neg (Negative) Urine Urobilinogen < 2.0 (<2.0) mg/dL Ur Leukocyte Esterase Neg (Negative) Urine WBC (Auto) 2.0 (0.0-6.0) /HPF Urine RBC (Auto) 1.0 (0.0-6.0) /HPF U Epithel Cells (Auto) 3.0 (0-13.0) /HPF Urine Mucus 3+ /HPF <LENA PADILLA - Last Filed: 06/07/21 10:26> Critical care attestation.: If time is entered above; I have spent that time in minutes in the direct care of this critically ill patient, excluding procedure time. <HIFilibertoLINDA Whitehead - Last Filed: 06/07/21 05:21> Critical care attestation.: If time is entered above; I have spent that time in minutes in the direct care of this critically ill patient, excluding procedure time. <LENA PADILLA - Last Filed: 06/07/21 10:26> ED Disposition <LINDA MELGAR - Last Filed: 06/07/21 05:21> Is pt being admited?: No Time of Disposition: 10:26 <LENA PADILLA - Last Filed: 06/07/21 10:26> Clinical Impression: Cholelithiasis, Biliary colic, Gastritis Disposition: 01 HOME / SELF CARE / HOMELESS Condition: Stable Instructions: Gastritis, Adult, Abdominal Pain (ED), Cholelithiasis, [id number] Additional Instructions: Return to the emergency department should you develop worsening symptoms, inability to tolerate food or liquids, high fever or any other concerns Follow-up with the surgeon provided to discuss possible surgical removal of your gallbladder. Prescriptions: Dicyclomine [Bentyl] 20 mg PO QID #20 tablet HYDROcodone/APAP 5-325 [[place] 5/325] 1 - 2 each PO Q6HR PRN #14 tablet PRN Reason: Pain Famotidine [Pepcid] 20 mg PO BID #20 tablet Ondansetron [Zofran ODT TAB] 8 mg PO Q8HR #20 tab.rapdis Referrals: PRIMARY CARE, [Primary Care Provider] - 3-5 Days SANTOS MUÑOZ MD [Staff Physician] - 3-5 Days (general surgeon)
[2021-06-07 02:50] LABS: Alanine Aminotransferase 14 units/L (7-56); Albumin 4.5 g/dL (3.9-5)
[2021-06-07 02:57] LABS: Bilirubin,Direct < 0.2 mg/dL (0-0.2)
[2021-06-07 05:55] LABS: Bilirubin,Urine NEG (Negative); Blood,Urine NEG (Negative); Color,Urine Yellow (Yellow); Mucus,Urine 3+ /HPF; Urobilinogen,Urine < 2.0 mg/dL (<2.0)
--- NOTE | 2021-06-07 07:18 | Ultrasound Report ---
ULTRASOUND ABDOMEN, LIMITED INDICATION / CLINICAL INFORMATION: Right upper quadrant abdominal pain. COMPARISON: None available. FINDINGS: PANCREAS: Visualized portion shows no significant abnormality. AORTA: Longitudinal images of the aorta demonstrate no significant abnormality. IVC: Longitudinal images of the inferior vena cava demonstrate no significant abnormality. LIVER: Right hepatic lobe measures 15.4 cm. Liver appears minimally hyperdense suggesting a component of hepatic steatosis. Normal hepatopedal blood flow in the main portal vein. GALLBLADDER: Multiple gallstones are present. No gallbladder wall thickening. BILE DUCTS: No significant abnormality. Common bile duct measures 2.4 mm. RIGHT KIDNEY: No acute findings are suggested to involve the right kidney. FREE FLUID: None. ADDITIONAL FINDINGS: None. IMPRESSION: 1. Cholelithiasis without specific evidence of acute cholecystitis. Signer Name: Ketan aPrsons II, MD Signed: 06/07/2021 7:13 AM Workstation Name: [id number]
[2021-06-07] MEDS ORDERED: HYDROmorphone 1 MG/1 ML INJ IV ONE (08:01)
[2021-06-07 12:07] VITALS: BP 110/48
== END 2021-06-07 11:10 | disposition home or self-care (01) ==
LOC: ED 19:22
DX: K80.20 Calculus of gallbladder without cholecystitis without obstruction (principal); K80.50 Calculus of bile duct without cholangitis or cholecystitis without obstruction; K29.70 Gastritis, unspecified, without bleeding; K21.9 Gastro-esophageal reflux disease without esophagitis; G43.909 Migraine, unspecified, not intractable, without status migrainosus; F17.200 Nicotine dependence, unspecified, uncomplicated
CPT/HCPCS: 36415; 76705; 80048; 80076; 81001; 83690; 84703; 85025; 96361; 96374; 96375; 99284; J0500; J1170; J2405; J3010; J3490; J7030; 96372

== ENCOUNTER 2021-07-01 17:02 | Emergency (ER) | payer SELFPAY ==
[2021-07-01 17:21] VITALS: BP 154/92
[2021-07-01] MEDS ORDERED: MORPHINE 4 MG/1 ML INJ IV ONE (18:36)
[2021-07-01] MEDS ORDERED: diphenhydrAMINE 50 MG/ML VIAL IV ONE (18:36)
[2021-07-01] MEDS ORDERED: METOCLOPRAMIDE 10 MG/2 ML INJ IV ONE (18:36)
--- NOTE | 2021-07-01 18:40 | Emergency Department Report ---
ED General Adult HPI - General Chief complaint: Headache Stated complaint: HEADACHE/HYPERTENSION/SWOLLEN FEET Time Seen by Provider: 07/01/21 18:33 Source: patient, EMS Mode of arrival: Stretcher Limitations: No Limitations - History of Present Illness Initial comments: Patient is 30 years old female with history of migraine and recent diagnosis of symptomatic gallbladder stone. Patient is scheduled for surgery on July 06. Patient presented to the ER complaining of headache, throbbing in nature. Patient stated that her headache is similar to her previous migraine attack. Patient is also reporting increasing pain to the right upper quadrant abdominal area. She denies any fever or chills. No neck pain, focal weakness numbness or tingling sensation. No bowel or bladder incontinence. - Related Data Previous Rx's Medication Instructions Recorded Last Taken Type Albuterol Mdi (or & Nicu Only) 2 puff IH QID PRN #1 inhalation 01/26/19 Unknown Rx [ProAir HFA Inhaler] Famotidine [Pepcid] 20 mg PO BID #20 tablet 06/07/21 Unknown Rx Ondansetron [Zofran Odt] 4 mg PO Q8HR PRN #14 tab.rapdis 07/01/21 Unknown Rx traMADoL [Ultram 50 MG tab] 50 mg PO Q4HR PRN #14 tablet 07/01/21 Unknown Rx Allergies Allergy/AdvReac Type Severity Reaction Status Date / Time NSAIDS (Non-Steroidal Allergy Unknown Unknown Verified 06/07/21 09:30 Anti-Inflamma MOLD AdvReac Severe Anaphylaxis Uncoded 06/25/21 16:42 TREES,GRASS AdvReac Unknown Uncoded 06/25/21 16:42 ED Review of Systems ROS: Stated complaint: HEADACHE/HYPERTENSION/SWOLLEN FEET Other details as noted in HPI Comment: All other systems reviewed and negative Constitutional: denies: chills, fever Respiratory: denies: cough, shortness of breath, SOB with exertion, SOB at rest Cardiovascular: denies: chest pain, palpitations Gastrointestinal: abdominal pain. denies: nausea, vomiting, diarrhea, constipation, hematemesis, melena, hematochezia Musculoskeletal: denies: back pain Neurological: headache. denies: weakness, numbness, paresthesias, confusion, abnormal gait ED Past Medical Hx - Past Medical History Hx Hypertension: No Hx GERD: Yes Hx Headaches / Migraines: Yes (MIGRAINES) Hx Tuberculosis: No Hx HIV: No Additional medical history: IUD; h/o gallstones, gastritis - Surgical History Additional Surgical History: IUD - Social History Smoking Status: Never Smoker Substance Use Type: None - Medications Home Medications: Home Medications Medication Instructions Recorded Confirmed Last Taken Type Albuterol Mdi (or & Nicu Only) 2 puff IH QID PRN #1 inhalation 01/26/19 06/28/21 Unknown Rx [ProAir HFA Inhaler] Famotidine [Pepcid] 20 mg PO BID #20 tablet 06/07/21 06/28/21 Unknown Rx Ondansetron [Zofran Odt] 4 mg PO Q8HR PRN #14 tab.rapdis 07/01/21 Unknown Rx traMADoL [Ultram 50 MG tab] 50 mg PO Q4HR PRN #14 tablet 07/01/21 Unknown Rx ED Physical Exam - General Limitations: No Limitations General appearance: alert, in distress - Head Head exam: Present: atraumatic, normocephalic, normal inspection - Eye Eye exam: Present: normal appearance - ENT ENT exam: Present: normal exam, normal orophraynx, mucous membranes moist - Neck Neck exam: Present: normal inspection, full ROM. Absent: tenderness, meningismus - Respiratory Respiratory exam: Present: normal lung sounds bilaterally. Absent: respiratory distress, wheezes, rales, rhonchi - Cardiovascular Cardiovascular Exam: Present: regular rate, normal rhythm, normal heart sounds - GI/Abdominal GI/Abdominal exam: Present: soft, tenderness, normal bowel sounds. Absent: distended, guarding, rebound, rigid, organomegaly, mass, bruit, pulsatile mass, hernia - Extremities Exam Extremities exam: Present: normal inspection, full ROM, normal capillary refill. Absent: tenderness - Back Exam Back exam: Present: normal inspection, full ROM. Absent: CVA tenderness (R), CVA tenderness (L) - Neurological Exam Neurological exam: Present: alert, oriented X3, CN II-XII intact, normal gait, reflexes normal. Absent: motor sensory deficit - Psychiatric Psychiatric exam: Present: normal mood - Skin Skin exam: Present: warm, intact, normal color ED Course Vital Signs 07/01/21 17:17 Temperature 98.7 F Pulse Rate 78 Respiratory 18 Rate Blood Pressure 154/92 O2 Sat by Pulse 100 Oximetry ED Medical Decision Making - Lab Data Result diagrams: 07/01/21 19:08 07/01/21 20:18 - Radiology Data Radiology results: report reviewed - Medical Decision Making Patient is 30 years old female with history of migraine and recent diagnosis of symptomatic gallbladder stone. Patient is scheduled for surgery on July 06. Patient presented to the ER complaining of headache, throbbing in nature. Patie nt stated that her headache is similar to her previous migraine attack. Patient is also reporting increasing pain to the right upper quadrant abdominal area. She denies any fever or chills. No neck pain, focal weakness numbness or tingling sensation. No bowel or bladder incontinence. Patient received morphine, Reglan and Benadryl. Patient stated that she is feeling much better. Labs reviewed and is unremarkable. Right upper quadrant ultrasound showed cholelithiasis with no evidence of cholecystitis. Patient advised to follow-up with her primary care physician in the next 2 to 3 days and to follow-up with Dr. Hall for her scheduled cholecystectomy. Patient advised to return to the ER if she develop any symptoms. Critical care attestation.: If time is entered above; I have spent that time in minutes in the direct care of this critically ill patient, excluding procedure time. ED Disposition Clinical Impression: Acute headache, Acute abdominal pain Disposition: 01 HOME / SELF CARE / HOMELESS Is pt being admited?: No Condition: Stable Instructions: Migraine Headache, [id number], Abdominal Pain, Adult Prescriptions: traMADoL [Ultram 50 MG tab] 50 mg PO Q4HR PRN #14 tablet PRN Reason: Pain Ondansetron [Zofran Odt] 4 mg PO Q8HR PRN #14 tab.rapdis PRN Reason: Nausea And Vomiting Referrals: PRIMARY CARE, [Referring] - 3-5 Days
[2021-07-01 19:46] LABS: Basophils # (Auto) 0.1 K/mm3 (0.0-0.1); Basophils % (Auto) 0.8 % (0.0-1.8); Eosinophils # (Auto) 0.1 K/mm3 (0.0-0.4); Eosinophils % (Auto) 1.5 % (0.0-4.3); Hematocrit 34.5 % (30.3-42.9); Hemoglobin 11.1 gm/dl (10.1-14.3); Lymphocytes # (Auto) 2.7 K/mm3 (1.2-5.4); Lymphocytes % (Auto) 41.9 % (13.4-35.0); Mean Corpuscular HGB Conc 32 % (30-34); Mean Corpuscular Volume 84 fl (79-97); Monocytes # (Auto) 0.5 K/mm3 (0.0-0.8); Monocytes % (Auto) 8.3 % (0.0-7.3); Platelet Count 310 K/mm3 (140-440); Red Blood Count 4.13 M/mm3 (3.65-5.03); Red Cell Distribution Width 13.7 % (13.2-15.2)
[2021-07-01 20:18] LABS: Alanine Aminotransferase TNR units/L (7-56); Albumin TNR g/dL (3.9-5); BUN/Creatinine Ratio TNR; Bilirubin,Direct TNR mg/dL (0-0.2); Blood Urea Nitrogen TNR mg/dL (7-17); Calcium TNR mg/dL (8.4-10.2)
[2021-07-01 20:19] LABS: Hemolysis Index TNR
--- NOTE | 2021-07-01 20:26 | Ultrasound Report ---
LIMITED RUQ ABDOMINAL ULTRASOUND INDICATION: Right upper quadrant abdominal pain.. COMPARISON: Previous ultrasound on 06/07/2021. FINDINGS: Pancreas: Visualized portions show no significant abnormality. Abdominal Aorta: No significant abnormality. IVC: No significant abnormality. Liver: The liver measures 16 cm in length. No significant abnormality. Normal hepatopedal blood flow in the main portal vein. Gallbladder: Multiple gallstones in the gallbladder without wall thickening or distention. Bile ducts: No significant abnormality. Common bile duct measures 2.8 mm. Right kidney: No significant abnormality visualized.. Free fluid: None. Additional Findings: None. IMPRESSION: 1. Cholelithiasis without evidence of acute cholecystitis.. Signer Name: Jose Roper MD Signed: 07/01/2021 8:21 PM Workstation Name: [id number]
[2021-07-01 20:57] LABS: Alanine Aminotransferase 12 units/L (7-56); Albumin 4.2 g/dL (3.9-5); Blood Urea Nitrogen 8 mg/dL (7-17); Calcium 9.3 mg/dL (8.4-10.2); Hemolysis Index 3
[2021-07-01 20:58] LABS: BUN/Creatinine Ratio 11; Bilirubin,Direct < 0.2 mg/dL (0-0.2)
[2021-07-01] MEDS ORDERED: fentaNYL 100 MCG/2 ML INJ IV ONE (22:07)
[2021-07-02 00:22] LABS: Bilirubin,Urine NEG (Negative); Blood,Urine SM (Negative); Color,Urine Yellow (Yellow); Protein,Urine <15 mg/dL mg/dL (Negative); Urobilinogen,Urine < 2.0 mg/dL (<2.0)
[2021-07-02 00:24] LABS: RBC,Urine < 1.0 /HPF (0.0-6.0)
== END 2021-07-01 23:45 | disposition home or self-care (01) ==
LOC: ED 17:02
DX: R51.9 Headache, unspecified (principal); R10.11 Right upper quadrant pain; K21.9 Gastro-esophageal reflux disease without esophagitis; Z91.09 Other allergy status, other than to drugs and biological substances; Z79.899 Other long term (current) drug therapy
CPT/HCPCS: 36415; 76705; 80048; 80076; 81001; 83880; 84703; 85025; 96374; 96375; 99284; J1200; J2270; J2765

== ENCOUNTER 2021-07-06 06:18 | Day surgery (SDC) | payer OTHER ==
[2021-07-06] MEDS ORDERED: BUPIVACAINE/PF (0.5%) 5 MG/1 ML 30 ML VIAL INFILTRATI ONE ×2 (07:13→09:17)
[2021-07-06] MEDS ORDERED: LIDOCAINE (1%) 10 MG/1 ML VIAL 20 ML MDV ONE (07:13)
[2021-07-06] MEDS ORDERED: LACTATED RINGERS 1,000 ML ONE (07:34)
--- NOTE | 2021-07-06 07:40 | Anesthesia Day of Surgery ---
Anesthesia Day of Surgery - Day of Surgery Patient Examined: Yes Patient H&P Reviewed: Yes Patient is NPO: Yes
--- NOTE | 2021-07-06 07:42 | Anesthesia Consultation ---
Anesthesia Consult and Med Hx Date of service: 07/06/21 - Airway Anesthetic Teeth Evaluation: Chipped ROM Head & Neck: Adequate Mental/Hyoid Distance: Adequate Mallampati Class: Class II Intubation Access Assessment: Good - Pre-Operative Health Status ASA Pre-Surgery Classification: ASA3 Proposed Anesthetic Plan: General - Pulmonary Hx Smoking: Yes (QUIT 06/16/21 , DAILY MARIJUANA) SOB: Yes (SOB. Uses inhaler when exposed to allergens) Hx Sleep Apnea: No (SUZANNE PRE SCREEN LOW RISK) - Cardiovascular System Hx Hypertension: No - Central Nervous System Hx Neuromuscular Disorder: Yes (Migraines) Hx Back Pain: Yes (NECK PAIN) Hx Psychiatric Problems: Yes - Gastrointestinal Hx Gastroesophageal Reflux Disease: Yes - Hematic Hx Sickle Cell Disease: No - Other Systems Hx Alcohol Use: Yes Hx Substance Use: Yes (MARIJUANA-1 OR 2 JOINTS/DAY) Hx Cancer: No Hx Obesity: Yes (BMI 35)
[2021-07-06] MEDS ORDERED: ceFAZolin/Water 2 GM/20 ML 2 GM/20 ML SYRINGE IV ONE (07:43)
[2021-07-06] MEDS ORDERED: ceFAZolin/STERILE WATER 2 GM/20 ML SYRINGE IV NR (07:45)
[2021-07-06] MEDS ORDERED: MIDAZOLAM 2 MG/2 ML INJ ONE (07:45)
[2021-07-06] MEDS ORDERED: MAGNESIUM OXIDE 400 MG TAB PO ONE (07:45)
[2021-07-06] MEDS ORDERED: MAGNESIUM OXIDE 400 MG TAB PO SCH (08:00)
[2021-07-06] MEDS ORDERED: LACTATED RINGERS 1,000 ML IV SCH (08:00)
[2021-07-06] MEDS ORDERED: MIDAZOLAM 2 MG/2 ML INJ IV NR (08:00)
[2021-07-06] MEDS ORDERED: HYDROmorphone 0.5 MG/0.5 ML INJ IV PRN ×2 (08:00)
[2021-07-06] MEDS ORDERED: ONDANSETRON 4 MG/2 ML INJ IV PRN (08:00)
[2021-07-06] MEDS ORDERED: ACETAMINOPHEN 500 MG TAB PO SCH (08:00)
--- NOTE | 2021-07-06 09:02 | Short Stay Summary ---
Short Stay Documentation Date of service: 07/06/21 - History Principal diagnosis: SYMPTOMATIC CHOLELITHIASIS H&P: obtained from office - Allergies and Medications Current Medications: Allergies NSAIDS (Non-Steroidal Anti-Inflamma Allergy (Unknown, Verified 06/07/21 09:30) Unknown Pt states these cause her gall bladder to flare up MOLD Adverse Reaction (Severe, Uncoded 06/25/21 16:42) Anaphylaxis THROAT CLOSES UP TREES,GRASS Adverse Reaction (Uncoded 06/25/21 16:42) Unknown Home Medications Medication Instructions Recorded Confirmed Last Taken Type RX: Albuterol Mdi (or & Nicu Only) 2 puff IH QID PRN #1 inhalation 01/26/19 06/28/21 Unknown Rx [ProAir HFA Inhaler] RX: Famotidine [Pepcid] 20 mg PO BID #20 tablet 06/07/21 06/28/21 Unknown Rx Ondansetron [Zofran Odt] 4 mg PO Q8HR PRN #14 tab.rapdis 07/01/21 Unknown Rx RX: traMADoL [Ultram 50 MG tab] 50 mg PO Q4HR PRN #14 tablet 07/01/21 Unknown Rx Active Medications Acetaminophen (Acetaminophen 500 Mg Tab) 1,000 mg PO ONCE@0800 TRINITY Stop: 07/06/21 21:00 Last Admin: 07/06/21 07:45 Dose: 1,000 mg Cefazolin Sodium (Cefazolin/Sterile Water 2 Gm/20 Ml Syringe) 2 gm IV PREOP NR Stop: 07/06/21 15:00 Hydromorphone HCl (Hydromorphone 0.5 Mg/0.5 Ml Inj) 0.25 mg IV Q10MIN PRN PRN Reason: Pain, Moderate (4-6) Stop: 07/06/21 17:00 Hydromorphone HCl (Hydromorphone 0.5 Mg/0.5 Ml Inj) 0.5 mg IV Q10MIN PRN PRN Reason: Pain , Severe (7-10) Stop: 07/06/21 17:00 Lactated Ringer's (Lactated Ringers) 1,000 mls @ 125 mls/hr IV DIRECT TRINITY Last Admin: 07/06/21 07:45 Dose: 125 mls/hr Magnesium Oxide (Magnesium Oxide 400 Mg Tab) 400 mg PO ONCE@0800 TRINITY Stop: 07/06/21 21:00 Last Admin: 07/06/21 07:45 Dose: 400 mg Methocarbamol (Methocarbamol 750 Mg Tab) 1,500 mg PO ONCE@0800 TRINITY Stop: 07/06/21 21:00 Last Admin: 07/06/21 07:45 Dose: 1,500 mg Midazolam HCl (Midazolam 2 Mg/2 Ml Inj) 2 mg IV PREOP NR Stop: 07/06/21 23:59 Last Admin: 07/06/21 07:50 Dose: 2 mg Ondansetron HCl (Ondansetron 4 Mg/2 Ml Inj) 4 mg IV ONCE PRN PRN Reason: Nausea And Vomiting Stop: 07/06/21 16:00 - Brief post op/procedure progress note Date of procedure: 07/06/21 Pre-op diagnosis: SYMPTOMATIC CHOLELITHIASIS Post-op diagnosis: same Procedure: Lap elsa Anesthesia: GETA, local Findings: mildly distended gallbladder with stones Surgeon: LEE JAIN Director Of Clinical Applications: SOURAV SIDHU Estimated blood loss: minimal Pathology: list (gallbladder) Specimen disposition: to lab Condition: stable - Hospital course Hospital course: Pt observed in PACU and discharged home in stable condition - Disposition Condition at discharge: Good Disposition: 01 HOME / SELF CARE / HOMELESS Short Stay Discharge Plan Activity: no restrictions Diet: regular Wound: open to air Additional Instructions: Please see printed instructions Follow up with: PRIMARY MD ALONDRA [Primary Care Provider] - 7 Days LEE JAIN DO [Staff Physician] - 14 Days
[2021-07-06] MEDS ORDERED: LIDOCAINE (1%) 10 MG/1 ML VIAL 20 ML MDV INFILTRATI ONE (09:17)
[2021-07-06] MEDS ORDERED: SODIUM CHLORIDE 0.9% IRR 1,500 ML BOTTLE IR ONE (09:17)
[2021-07-06] MEDS ORDERED: WATER FOR IRRIG STERILE 1,500 ML BOTTLE IR ONE (09:18)
[2021-07-06] MEDS ORDERED: HYDROcodone/ACETAMINOPHEN 5-325 MG TAB PO PRN (10:01)
--- NOTE | 2021-07-06 10:59 | Operative Report ---
Operative Report Operative Report: Date of procedure: 07/06/21 Pre-op diagnosis: SYMPTOMATIC CHOLELITHIASIS Post-op diagnosis: same Procedure: Lap elsa Anesthesia: GETA, local Findings: mildly distended gallbladder with stones Surgeon: LEE JAIN Rubber Washer: SOURAV SIDHU Estimated blood loss: minimal Pathology: list (gallbladder) Specimen disposition: to lab Condition: stable Hospital course: Pt observed in PACU and discharged home in stable condition Condition at discharge: Good Disposition: 01 HOME / SELF CARE / HOMELESS HPI an indication: 30-year-old female who presented to the surgery clinic with complaints of intermittent sharp right upper quadrant abdominal pain. Patient states that the pain is been ongoing for some time. The pain was associated with foods and often led to nausea and vomiting. Imaging revealed cholelithiasis without cholecystitis. It was recommended that the patient undergo cholecystectomy. All risks, benefits, alternatives to surgery were discussed in detail and questions answered. Consent was obtained for laparoscopic, possible open cholecystectomy, possible cholangiogram. Procedure in detail: The patient was identified in the preoperative area and taken back to the operating room, placed on the operating room table in supine position. After anesthesia was induced, the abdomen was prepped and draped in usual sterile fashion and timeout was performed. Local anesthetic was infiltrated into all of the skin incision sites. A godwin incision was made in the left upper quadrant at Carrero's point through which a Veress needle was inserted. The Veress needle positioning was confirmed using saline drop test and the abdomen insufflated to 15 mmHg without incident. A supraumbilical incision was made through which a 5mm optiview trocar was placed under direct visualization. The veress needle was identified and removed. An additional 12 mm subxiphoid, and 2 5mm RUQ trocars were placed under direct visualization. The patient was then placed into reverse Trendelberg and tilted to the left. The gallbladder was mildly distended and was retracted cephalad and above the liver. The cystic duct and artery were carefully skeletonized. The medial and lateral peritoneal attachments to the gallbladder were dissected using a combination of blunt dissection with the [place] and hook electrocautery. The cystic duct and artery were the only 2 structures seen entering the gallbladder and the critical view was successfully obtained. The artery was very small and ligated using the hook electrocautery. 3 clips were placed on the proximal aspect of the cystic duct and 1 distally and this was transected in between the clips using EndoShears. The gallbladder was dissected from the liver bed using zoë ctrocautery. The gallbladder was placed into a Endo Catch bag and removed from the abdomen via the 12mm port. The gallbladder fossa was then inspected and there was no identifiable bleeding or bile leakage. Hemostasis was ensured. The clips on the cystic duct were visualized and intact. The patient was then placed into neutral position. The 12 mm port fascia was closed with interrupted 0 Vicryl suture using the Neymar Cooney device. The remaining ports were removed under direct visualization. Skin incisions were closed with 4-0 Monocryl subcuticular stitches and skin glue. All skin incisions were once again infiltrated with local anesthetic. At the end case all sponge, instrument, sharp counts were correct 2. The patient was awoken from anesthesia, extubated, and taken to PACU in stable condition.
[2021-07-06 11:03] VITALS: BP 151/88
--- NOTE | 2021-07-06 16:11 | Post Anesthesia Evaluation ---
- Post Anesthesia Evaluation Patient Participated: Yes Airway Patent: Yes Stable Respiratory Function: Yes Nausea/Vomiting: No Temp > 96.8F: Yes Pain Manageable: Yes Adequeate Hydration: Yes Anesthesia Complications: No Block Receding Appropriately: Not Applicable Patient on Ventilator: No
== END 2021-07-06 06:19 | disposition home or self-care (01) ==
LOC: OR 06:18
PROVIDERS: ATTEND Surgery
DX: K80.10 Calculus of gallbladder with chronic cholecystitis without obstruction (principal); K21.9 Gastro-esophageal reflux disease without esophagitis; F41.9 Anxiety disorder, unspecified; G43.909 Migraine, unspecified, not intractable, without status migrainosus; Z79.899 Other long term (current) drug therapy; Z98.890 Other specified postprocedural states
CPT/HCPCS: 47562; 81025; 88304; J0690; J2250; J3490; J7120